=== PATIENT | female | born 1995 | race Hispanic/Latino ===

== ENCOUNTER 2021-06-12 17:38 | Emergency (ER) | payer MEDICAID ==
[~2021-06-12] VITALS: Ht 147.3 cm; Wt 87.1 kg
[2021-06-12 17:40] VITALS: BP 134/97
[2021-06-12] MEDS ORDERED: ACET1TAB25 PO (19:24)
[2021-06-12] MEDS ORDERED: ACETAMINOPHEN WITH CODEINE 1 TAB TAB PO ONE (19:30)
== END 2021-06-12 19:33 | disposition home or self-care (01) ==
LOC: EDH 17:38
DX: K02.9 Dental caries, unspecified (principal); K13.79 Other lesions of oral mucosa; E66.9 Obesity, unspecified; F41.9 Anxiety disorder, unspecified; Z68.41 Body mass index [BMI] 40.0-44.9, adult

== ENCOUNTER 2023-10-22 15:39 | Emergency (ER) | payer BC, MEDICAID ==
[~2023-10-22] VITALS: Ht 144.8 cm; Wt 103.0 kg
[~2023-10-22 15:39] MED LIST: ACET-2079 PO
[2023-10-22 16:24] LABS: BILIRUBIN,URINE NEGATIVE (NEGATIVE); COLOR,URINE YELLOW (YELLOW); GLUCOSE, URINE (UA) NEGATIVE (NEGATIVE); KETONES,URINE NEGATIVE (NEGATIVE); LEUKOCYTE ESTERASE ,URINE 75 Leu/uL (NEGATIVE); NITRATE,URINE NEGATIVE (NEGATIVE); OCCULT BLOOD,URINE MODERATE (NEGATIVE); PH,URINE 5.5 (5.0-8.0); PROTEIN,URINE 20 mg/dL (NEGATIVE); UROBILINOGEN,URINE 3 mg/dL (0.2-1.0)
[2023-10-22 16:26] LABS: ADD UA MICROSCOPIC YES; APPEARANCE,URINE HAZY (CLEAR)
[2023-10-22 16:28] LABS: BACTERIA,URINE FEW /HPF (None Seen); MUCUS,URINE FEW LPF (None Seen); SQUAMOUS EPITHELIAL CELL,UR MANY /HPF (0-2)
[2023-10-22 18:00] LABS: HEMATOCRIT 38.5 % (36-48); MEAN CORPUSCULAR HEMOGLOBIN 34.5 pg (27.0-33.0); MEAN CORPUSCULAR HGB CONC 34.5 g/dL (32.0-36.0); MEAN CORPUSCULAR VOLUME 99.7 fL (79-99); RED BLOOD CELL COUNT(AUTO) 3.86 MIL/uL (4.00-5.50); RED CELL DISTRIBUTION WIDTH 13.8 % (11.0-15.5); WHITE BLOOD COUNT (AUTO) 6.3 K/uL (4.8-10.8)
[2023-10-22 18:10] LABS: CREATININE 0.8 mg/dL (0.5-1.0); POTASSIUM 3.8 mmol/L (3.5-5.1)
[2023-10-22 18:16] LABS: ALBUMIN 3.9 g/dL (3.5-5.0); BILIRUBIN,TOTAL 1.1 mg/dL (0.2-1.0); TOTAL PROTEIN, SERUM 7.6 g/dL (6.0-8.3)
[2023-10-22] MEDS ORDERED: IBUP-2077 PO (18:50)
[2023-10-22] MEDS ORDERED: PHEN-847 PO (18:50)
[2023-10-22] MEDS ORDERED: AMOX1TAB16 PO (18:50)
[2023-10-22 19:29] VITALS: BP 122/85; PULSE 82; RESP 16; O2SAT 99
[2023-10-22] MEDS: ACETAMINOPHEN 500 MG TABLET PO ONE (19:32)
[2023-10-22] MEDS: AMOX/CLAV 875/125MG TAB PO ONE (19:33)
== END 2023-10-22 20:23 | disposition home or self-care (01) ==
LOC: EDH 15:39
DX: N30.01 Acute cystitis with hematuria (principal); R30.0 Dysuria; E66.9 Obesity, unspecified; F41.9 Anxiety disorder, unspecified
CPT/HCPCS: 36415; 80053; 81001; 81025; 83690; 85027; 87077; 87088; 87186